=== PATIENT | female | born 1995 | race American Indian/Alaskan Native ===

== ENCOUNTER 2022-04-09 09:33 | Day surgery (SDC) | payer SELFPAY ==
[2022-04-09] MEDS ORDERED: Diphtheria,Pertussis(Acell),Tetanus Vaccine 0.5 ML Syringe IM ONE (10:36)
[2022-04-09] MEDS ORDERED: Morphine 2 MG/ML SYRINGE IVPUSH ONE ×3 (10:36→16:12)
[2022-04-09] MEDS ORDERED: Piperacillin/Tazobactam 4.5 GM in Sodium Chloride 0.9% 100 ML IV ONE (10:36)
[2022-04-09] MEDS ORDERED: Sodium Chloride 0.9% 100 ML ONE (10:44)
[2022-04-09] MEDS ORDERED: Lactated Ringers 1,000 ML IV ONE (11:15)
[2022-04-09] MEDS ORDERED: Lidocaine 1% 20 ML MDV INJECT ONE (14:01)
[2022-04-09] MEDS ORDERED: Lidocaine 1% 10 ML MDV ONE (14:09)
[2022-04-09] MEDS ORDERED: Morphine 2 MG/ML SYRINGE ONE (14:18)
[2022-04-09] MEDS ORDERED: Bupivacaine 0.5%/EPINEPHrine 1:200,000 50 ML MDV ONE (15:54)
[2022-04-09] MEDS ORDERED: Midazolam 1 MG/ML 2 ML SDV ONE (16:08)
[2022-04-09] MEDS ORDERED: Propofol 200 MG/20 ML SDV ONE (16:08)
[2022-04-09] MEDS ORDERED: fentaNYL 250 MCG/5 ML SDV ONE (16:08)
[2022-04-09] MEDS ORDERED: Lidocaine 1% 5 ML VIAL ONE (16:09)
[2022-04-09] MEDS ORDERED: Ketorolac 30 MG/ML SDV ONE (16:09)
[2022-04-09] MEDS ORDERED: diphenhydrAMINE 50 MG/ML SDV ONE (16:09)
[2022-04-09] MEDS ORDERED: Dexamethasone 4 MG/ML 5 ML MDV ONE (16:09)
[2022-04-09] MEDS ORDERED: Ondansetron 4 MG/2 ML SDV ONE (16:09)
[2022-04-09] MEDS ORDERED: Ondansetron 4 MG/2 ML SDV IVPUSH PRN (16:54)
[2022-04-09] MEDS ORDERED: HYDROmorphone 0.5 MG/0.5 ML Syringe IVPUSH PRN (16:54)
[2022-04-09] MEDS ORDERED: fentaNYL 100 MCG/2 ML SDV IVPUSH PRN (16:54)
[2022-04-09] MEDS ORDERED: Acetaminophen/HYDROcodone 325-5 MG Tab PO ONE (19:20)
== END 2022-04-09 21:45 | disposition home or self-care (01) ==
LOC: JD.ED 09:33 → JD.SDS 15:51
PROVIDERS: ATTEND Surgery
DX: S41.152A Open bite of left upper arm, initial encounter (principal); S81.852A Open bite, left lower leg, initial encounter; S51.852A Open bite of left forearm, initial encounter; K21.9 Gastro-esophageal reflux disease without esophagitis; F32.A Depression, unspecified; Z87.891 Personal history of nicotine dependence; W54.0XXA Bitten by dog, initial encounter
CPT/HCPCS: 12002; 13121; 36415; 73060; 73090; 80053; 84703; 85025; 90715; A9270; J1100; J1200; J1885; J2250; J2270; J2405; J2543; J2704; J3010; J3490; 00400; 12001; 90471; 96365; 96375; 96376; 99140; 99284-25